=== PATIENT | female | born 2000 | race Caucasian/White ===

== ENCOUNTER 2021-12-08 09:54 | Inpatient (IN) ==
[2021-12-08] MEDS ORDERED: Famotidine 20 MG/2 ML VIAL IVP PRN (10:17)
[2021-12-08] MEDS ORDERED: Metoclopramide 10 MG/2 ML VIAL IVP PRN (10:17)
[2021-12-08] MEDS ORDERED: *HR* Nalbuphine 10 MG/ML AMPUL IV PRN (10:17)
[2021-12-08] MEDS ORDERED: Naloxone 0.4 MG/ML INJ IVP PRN (10:17)
[2021-12-08] MEDS ORDERED: Lidocaine 1% 20 ML MDV INFILT PRN (10:17)
[2021-12-08] MEDS ORDERED: Ringers Solution, Lactated 1,000 ML ONE (10:19)
[2021-12-08 10:29] LABS: Red Cell Distribution Width 13.2 % (11.5-14.5)
[2021-12-08] MEDS ORDERED: Ringers Solution, Lactated 1,000 ML IVC SCH (10:30)
[2021-12-08 10:31] LABS: Basophils % 0.4 %; Eosinophils % 0.3 %; Hematocrit 39.6 % (35.3-44.9); Hemoglobin 12.9 g/dL (11.5-15.4); Immature Granulocytes % 0.6 % (0-4); Immature Platelets 15.4 % (1.1-6.1); Lymphocytes % 24.2 %; Mean Corpuscular HGB Conc 32.6 g/dL (31.6-35.5); Mean Corpuscular Hemoglobin 29.5 pg (28.0-33.3); Mean Corpuscular Volume 90.4 fL (83.0-100.0); Mean Platelet Volume 13.2 fL (9.4-12.4); Monocytes # 0.8 K/mcL (0.0-1.3); Monocytes % 8.7 %; Platelet Count 150 K/mcL (140-400); Red Blood Count 4.38 M/mcL (3.82-4.97); Segmented Neutrophils % 65.8 %; White Blood Count 9.7 K/mcL (4.3-11.1)
[2021-12-08 10:32] LABS: Lymphocytes # 2.4 K/mcL (0.6-4.6); Neutrophils # 6.4 K/mcL (1.6-8.9)
[2021-12-08] MEDS ORDERED: Epidural Premix (fent/bupiv) 110 ML EP ONE (10:37)
[2021-12-08] MEDS ORDERED: Ropivacaine/PF 0.2% 20 ML VIAL ONE (10:38)
[2021-12-08] MEDS ORDERED: *HR* FentaNYL (PF) 100 MCG/2 ML VIAL ONE (10:38)
[2021-12-08] MEDS ORDERED: Bupivacaine-MPF 0.25% 10 ML VIAL ONE (10:39)
[2021-12-08] MEDS ORDERED: EPHEDrine 50 MG/ML VIAL ONE (11:16)
[2021-12-08] MEDS ORDERED: EPHEDrine 50 MG/ML VIAL IVP PRN (15:20)
[2021-12-08] MEDS ORDERED: Epidural Premix (fent/bupiv) 110 ML EP SCH (15:30)
[2021-12-08 16:41] LABS: Amphetamine Screen,Urine Negative ng/mL (Cutoff=1000); Barbiturate Screen,Urine Negative ng/mL (Cutoff=200); Benzodiazepines Screen,Urine Negative ng/mL (Cutoff=200); Cannabinoid Screen,Urine Negative ng/mL (Cutoff = 50); Cocaine Screen,Urine Negative ng/mL (Cutoff= 300); Opiate Screen,Urine Negative ng/mL (Cutoff=300); Phencyclidine Screen,Urine Negative ng/mL (Cutoff=25)
[2021-12-08] MEDS ORDERED: Benzocaine/Menthol 56 GM AEROSOL SPRAY TP PRN (17:02)
[2021-12-08] MEDS ORDERED: Oxytocin 20 units/ LR 1000 mL 20 UNIT/1,000 ML BAG IVC ONE (17:02)
[2021-12-08] MEDS ORDERED: Oxytocin 20 units/ LR 1000 mL 20 UNIT/1,000 ML BAG IVC SCH (17:02)
[2021-12-08] MEDS ORDERED: Ondansetron ODT 4 MG TAB.RAPDIS SL PRN (17:02)
[2021-12-08] MEDS ORDERED: Lanolin 7 G OINT...G. TP PRN (17:02)
[2021-12-08] MEDS: Ibuprofen 600 MG TABLET PO SCH (17:11)
[2021-12-08] MEDS: Acetaminophen 325 MG TABLET PO SCH (20:08)
[2021-12-09] MEDS: Ibuprofen 600 MG TABLET PO SCH ×2 (05:26→11:53)
[2021-12-09] MEDS: Acetaminophen 325 MG TABLET PO SCH ×2 (05:26→11:53)
[2021-12-09 08:36] VITALS: BP 115/71; PULSE 81; TEMP 98.1; O2SAT 98
[2021-12-09] MEDS ORDERED: Prenatal Vit/FA 1 EACH TABLET PO SCH (09:00)
== END 2021-12-09 19:39 | disposition home or self-care (01) | DRG 560 ==
LOC: 1NENULAB 09:54 → 1NENUOBS 16:40
PROVIDERS: ADMIT Advanced Practice Midwife; ATTEND Advanced Practice Midwife